=== PATIENT | female | born 1985 | race Two or more races ===

== ENCOUNTER 2017-06-03 20:53 | Outpatient (CLI) | payer MEDICAID ==
[~2017-06-03] VITALS: Ht 152.4 cm; Wt 86.6 kg
[2017-06-03 22:31] VITALS: BP 112/57
== END 2017-06-03 22:55 | disposition home or self-care (01) ==
LOC: LDOP 20:53
PROVIDERS: ATTEND Obstetrics & Gynecology Maternal & Fetal Medicine
DX: O32.2XX0 Maternal care for transverse and oblique lie, not applicable or unspecified (principal); O46.93 Antepartum hemorrhage, unspecified, third trimester; Z3A.30 30 weeks gestation of pregnancy
CPT/HCPCS: 59025; 76815; 81001; 87086; 87147; 99201; G0463

== ENCOUNTER 2017-06-09 08:06 | Inpatient (IN) | payer OTHER, MEDICAID ==
[~2017-06-09] VITALS: Ht 152.4 cm; Wt 86.4 kg
[2017-06-09 08:20] VITALS: BP 115/66
[2017-06-09] MEDS ORDERED: MAGNESIUM SULFATE PMX 4GM/100M 100 ML IVPB ONE (09:00)
[2017-06-09 09:05] LABS: HEMOGLOBIN 12.5 g/dL (11.7-16.4); WHITE BLOOD COUNT 10.6 x10^3/uL (3.4-10)
[2017-06-09] MEDS ORDERED: BETAMETHASONE 6 MG/ML, 5ML IM ONE (09:06)
[2017-06-09] MEDS ORDERED: MAGNESIUM SULF. PMX 20GM/500ML 500 ML IV ONE ×2 (09:07→17:41)
[2017-06-09] MEDS: LACTATED RINGERS 1,000 ML IV PRN ×2 (09:54→20:59)
[2017-06-09] MEDS: BETAMETHASONE 6 MG/ML, 5ML IM SCH (09:54)
[2017-06-09] MEDS: MAGNESIUM SULF. PMX 20GM/500ML 500 ML IV SCH ×2 (09:57→17:47)
[2017-06-09] MEDS: AMPICILLIN 2 GM in SODIUM CHLORIDE 0.9% 100 ML IV SCH ×3 (10:14→21:12)
[2017-06-09 11:25] LABS: ASPARTATE AMINO TRANSFERASE 16 U/L (15-37); BLOOD UREA NITROGEN 7 mg/dL (7-18)
[2017-06-09] MEDS ORDERED: INSULIN ASPART 100 UNITS/ML, PEN SQ-INSULIN ONE ×2 (13:00→18:00)
[2017-06-09] MEDS: INSULIN ASPART 100 UNITS/ML, PEN SQ-INSULIN SCH ×2 (16:25→21:39)
[2017-06-09] MEDS: INSULIN DETEMIR 100 UNITS/ML, PEN SQ-INSULIN SCH (21:00)
[2017-06-09] MEDS ORDERED: INSULIN DETEMIR 100 UNITS/ML, PEN SQ-INSULIN SCH (21:30)
[2017-06-10] MEDS ORDERED: MIDAZOLAM 1 MG/ML, 2ML ONE (02:44)
[2017-06-10] MEDS ORDERED: FENTANYL PF 100 MCG/2ML ONE (02:44)
[2017-06-10] MEDS: AMPICILLIN 2 GM in SODIUM CHLORIDE 0.9% 100 ML IV SCH ×4 (03:19→21:21)
[2017-06-10] MEDS ORDERED: MAGNESIUM SULF. PMX 20GM/500ML 500 ML IV ONE ×3 (03:22→23:38)
[2017-06-10] MEDS: MAGNESIUM SULF. PMX 20GM/500ML 500 ML IV SCH ×3 (03:24→23:42)
[2017-06-10] MEDS: INSULIN ASPART 100 UNITS/ML, PEN SQ-INSULIN SCH ×3 (07:00→09:22)
[2017-06-10] MEDS ORDERED: INSULIN ASPART 100 UNITS/ML, PEN SQ-INSULIN SCH ×2 (07:30→11:30)
[2017-06-10] MEDS: INSULIN DETEMIR 100 UNITS/ML, PEN SQ-INSULIN SCH ×2 (09:21→21:00)
[2017-06-10] MEDS ORDERED: INSULIN ASPART 70/30 100U/ML, PEN SQ-INSULIN ONE ×5 (09:30→15:30)
[2017-06-10] MEDS: BETAMETHASONE 6 MG/ML, 5ML IM SCH (10:37)
[2017-06-10] MEDS: LACTATED RINGERS 1,000 ML IV PRN (11:58)
[2017-06-10] MEDS ORDERED: INSULIN ASPART 100 UNITS/ML, PEN SQ-INSULIN ONE ×2 (18:00→20:00)
[2017-06-10] MEDS ORDERED: INSULIN DETEMIR 100 UNITS/ML, PEN SQ-INSULIN ONE ×3 (20:00→21:30)
[2017-06-11 01:07] VITALS: BP 99/54
[2017-06-11] MEDS: LACTATED RINGERS 1,000 ML IV PRN (02:05)
[2017-06-11] MEDS: AMPICILLIN 2 GM in SODIUM CHLORIDE 0.9% 100 ML IV SCH ×3 (03:00→15:00)
[2017-06-11] MEDS ORDERED: INSULIN ASPART 100 UNITS/ML, PEN SQ-INSULIN SCH (07:30)
[2017-06-11] MEDS: INSULIN DETEMIR 100 UNITS/ML, PEN SQ-INSULIN SCH (07:40)
[2017-06-11] MEDS ORDERED: INSULIN DETEMIR 100 UNITS/ML, PEN SQ-INSULIN ONE ×2 (08:00→21:00)
[2017-06-11] MEDS: MAGNESIUM SULF. PMX 20GM/500ML 500 ML IV SCH (10:40)
[2017-06-11] MEDS ORDERED: ACETAMINOPHEN 325 MG TABLET ONE ×2 (11:39→22:33)
[2017-06-11] MEDS: ACETAMINOPHEN 325 MG TABLET PO PRN ×2 (11:42→22:35)
[2017-06-11] MEDS ORDERED: INSULIN ASPART 100 UNITS/ML, PEN SQ-INSULIN ONE ×4 (12:30→18:30)
[2017-06-11 20:00] VITALS: BP 96/51
[2017-06-11] MEDS ORDERED: TERBUTALINE 1 MG/ML, 1ML ONE (23:07)
[2017-06-11] MEDS ORDERED: TERBUTALINE 1 MG/ML, 1ML SQ ONE (23:30)
[2017-06-12] MEDS ORDERED: OXYcodone/APAP 5/325MG TABLET ONE (00:41)
[2017-06-12] MEDS ORDERED: OXYcodone/APAP 5/325MG TABLET PO PRN ×2 (01:00→05:30)
[2017-06-12] MEDS ORDERED: OXYTOCIN 30U/ 0.9% NaCL 500ML 500 ML ONE ×3 (01:26→05:13)
[2017-06-12] MEDS ORDERED: NEWBORN KIT ONE (01:26)
[2017-06-12] MEDS ORDERED: METOCLOPRAMIDE 5 MG/ML, 2ML ONE (01:26)
[2017-06-12] MEDS ORDERED: SODIUM CITRATE/CITRIC ACID 30 ML UDC ONE ×2 (01:26→01:27)
[2017-06-12] MEDS ORDERED: D5%-LACTATED RINGERS 1,000 ML IV SCH (01:44)
[2017-06-12] MEDS ORDERED: LACTATED RINGERS 1,000 ML IV SCH (01:44)
[2017-06-12] MEDS ORDERED: AMPICILLIN 2 GM in SODIUM CHLORIDE 0.9% 50 ML IVPB STA (01:44)
[2017-06-12] MEDS ORDERED: OXYTOCIN 30U/ 0.9% NaCL 500ML 500 ML IV ONE (01:44)
[2017-06-12] MEDS ORDERED: MISOPROSTOL 200 MCG TABLET ONE ×2 (01:52→04:54)
[2017-06-12] MEDS ORDERED: ONDANSETRON 2MG/ML, 2ML IVPush PRN (02:00)
[2017-06-12] MEDS ORDERED: CALCIUM CARBONATE 500 MG TAB.CHEW PO PRN (02:00)
[2017-06-12] MEDS ORDERED: METOCLOPRAMIDE 5 MG/ML, 2ML IVPush PRN (02:00)
[2017-06-12] MEDS ORDERED: SODIUM CITRATE/CITRIC ACID 30 ML UDC PO PRN (02:00)
[2017-06-12] MEDS ORDERED: FENTANYL PF 100 MCG/2ML IV PRN (02:00)
[2017-06-12] MEDS ORDERED: FENTANYL PF 100 MCG/2ML ONE ×3 (02:06→03:51)
[2017-06-12 02:07] LABS: HEMATOCRIT 33.3 % (34.6-47.8); WHITE BLOOD COUNT 14.7 x10^3/uL (3.4-10)
[2017-06-12] MEDS: FENTANYL PF 100 MCG/2ML IVPush PRN ×2 (02:09→02:56)
[2017-06-12] MEDS ORDERED: LIDOCAINE 1%, 20ML ONE (04:54)
[2017-06-12] MEDS ORDERED: ONDANSETRON 2MG/ML, 2ML IV PRN (05:30)
[2017-06-12] MEDS ORDERED: ACETAMINOPHEN 325 MG TABLET PO PRN (05:30)
[2017-06-12] MEDS ORDERED: MISOPROSTOL 200 MCG TABLET PO PRN (05:30)
[2017-06-12] MEDS: OXYTOCIN 30U/ 0.9% NaCL 500ML 500 ML IV SCH ×2 (05:51→15:12)
[2017-06-12] MEDS ORDERED: AMPICILLIN 1 GM in SODIUM CHLORIDE 0.9% 50 ML IV SCH (06:00)
[2017-06-12] MEDS ORDERED: PRENATAL VIT/IRON/FA 1 EACH TABLET ONE (07:20)
[2017-06-12 07:21] VITALS: BP 101/93
[2017-06-12] MEDS: DOCUSATE 100 MG CAPSULE PO PRN (07:25)
[2017-06-12] MEDS: PRENATAL VIT/IRON/FA 1 EACH TABLET PO SCH (07:29)
[2017-06-12] MEDS ORDERED: INSULIN ASPART 100 UNITS/ML, PEN SQ-INSULIN SCH (07:30)
[2017-06-12 12:15] VITALS: BP 111/78
[2017-06-12 13:10] LABS: HEMATOCRIT 36.7 % (34.6-47.8); HEMOGLOBIN 12.1 g/dL (11.7-16.4); WHITE BLOOD COUNT 15.5 x10^3/uL (3.4-10)
[2017-06-12 16:26] VITALS: BP 120/78
[2017-06-12] MEDS ORDERED: INSULIN ASPART 100 UNITS/ML, PEN SQ-INSULIN ONE (16:30)
[2017-06-12 19:47] VITALS: BP 106/60
[2017-06-12] MEDS ORDERED: INSULIN DETEMIR 100 UNITS/ML, PEN SQ-INSULIN ONE (21:00)
[2017-06-13 00:20] VITALS: BP 111/73
[2017-06-13] MEDS: IBUPROFEN 600 MG TABLET PO PRN ×2 (00:39→19:28)
[2017-06-13] MEDS: OXYTOCIN 30U/ 0.9% NaCL 500ML 500 ML IV SCH ×3 (01:12→21:12)
[2017-06-13 04:20] VITALS: BP 113/66
[2017-06-13] MEDS ORDERED: OXYC-302 PO (05:44)
[2017-06-13] MEDS ORDERED: IBUP-1222 PO (05:44)
[2017-06-13] MEDS ORDERED: INSULIN ASPART 100 UNITS/ML, PEN SQ-INSULIN SCH (07:30)
[2017-06-13] MEDS ORDERED: INSULIN DETEMIR 100 UNITS/ML, PEN SQ-INSULIN SCH (07:30)
[2017-06-13 08:05] VITALS: BP 116/68
[2017-06-13 09:15] VITALS: BP 112/67
[2017-06-13] MEDS: PRENATAL VIT/IRON/FA 1 EACH TABLET PO SCH (09:25)
[2017-06-13] MEDS: DOCUSATE 100 MG CAPSULE PO PRN (09:25)
[2017-06-13] MEDS ORDERED: DIPH,PERTUSS(ACELL),TET VAC/PF NC IM-VACC ONE ×2 (16:48→18:00)
[2017-06-13] MEDS ORDERED: MEASLES,MUMPS&RUBELLA VACC/PF 0.5 ML SQ-VACC ONE ×2 (16:48→17:30)
[2017-06-13] MEDS ORDERED: INSULIN ASPART 100 UNITS/ML, PEN SQ-INSULIN ONE (18:30)
[2017-06-13 19:20] VITALS: BP 124/81
[2017-06-13] MEDS ORDERED: INSULIN DETEMIR 100 UNITS/ML, PEN SQ-INSULIN ONE (21:00)
[2017-06-14] MEDS ORDERED: INSULIN ASPART 100 UNITS/ML, PEN SQ-INSULIN ONE (07:15)
[2017-06-14] MEDS ORDERED: INSULIN DETEMIR 100 UNITS/ML, PEN SQ-INSULIN ONE (07:15)
[2017-06-14 08:00] VITALS: BP 111/62
[2017-06-14] MEDS ORDERED: INSULIN ASPART 100 UNITS/ML, PEN SQ-INSULIN SCH (08:00)
== END 2017-06-14 10:16 | disposition home or self-care (01) | DRG 775 ==
LOC: LDOP 08:06 → LDIP 08:48 → 2NW 06-12 06:46
PROVIDERS: ADMIT Obstetrics & Gynecology Maternal & Fetal Medicine; ATTEND Obstetrics & Gynecology Maternal & Fetal Medicine
PROC: 0UQMXZZ Repair Vulva, External Approach (ICD-10-PCS; principal; 2017-06-09)
PROC: 10E0XZZ Delivery of Products of Conception, External Approach (ICD-10-PCS; 2017-06-09)
DX: O60.14X0 Preterm labor third trimester with preterm delivery third trimester, not applicable or unspecified (principal); O24.429 Gestational diabetes mellitus in childbirth, unspecified control; O71.82 Other specified trauma to perineum and vulva; Z37.0 Single live birth; Z3A.31 31 weeks gestation of pregnancy; Z79.4 Long term (current) use of insulin; Z90.81 Acquired absence of spleen
CPT/HCPCS: 36415; 76805; 80053; 81001; 82962; 83036; 83735; 85025; 85384; 86850; 86900; 87081; 87086; 90715; J0290; J0702; J1815; J2250; J3010; J2590; J3105; J3475; J7120

== ENCOUNTER 2019-08-31 22:41 | Emergency (ER) | payer MEDICAID, OTHER ==
[~2019-08-31] VITALS: Ht 152.4 cm; Wt 83.1 kg
[~2019-08-31 22:41] MED LIST: IBUP-1222 PO; OXYC-302 PO
--- NOTE | 2019-08-31 22:54 | NUR ---
PT REPORTS INCREASED BLOOD SUGAR W/ HX OF DIABETES. BLOOD SUGAR 515 AT TRIAGE. PT HAS NOT BEEN TAKING INSULIN FOR "LAST FEW DAYS". PT REPORTS NAUSEA, RUQ PAIN AND "SHAKINESS". ERP IN ROOM TO EVALUATE PT. PT CONNECTED TO MONITORING, CALL LIGHT WITHIN REACH, ALL SAFETY MEASURES IN PLACE.
[2019-08-31] MEDS ORDERED: SODIUM CHLORIDE 0.9% 1,000ML IVBOLUS ONE (23:00)
[2019-08-31 23:10] LABS: BASOPHILS # (AUTO) 0.03 x10^3/uL (0-0.1); BASOPHILS % (AUTO) 1 % (0-1); EOSINOPHILS # (AUTO) 0.15 x10^3/uL (0-0.4); EOSINOPHILS % (AUTO) 2 % (1-7); LYMPHOCYTES # (AUTO) 3.52 x10^3/uL (1-3.4); LYMPHOCYTES % (AUTO) 49 % (22-44); MD NO; MEAN CORPUSCULAR HEMOGLOBIN 31.2 pg (27.0-34.8); MEAN CORPUSCULAR HGB CONC 33.7 g/dL (32.4-35.8); MEAN CORPUSCULAR VOLUME 92.7 fL (80-100); MEAN PLATELET VOLUME 7.8 fL (7.4-10.4); MONOCYTES % (AUTO) 7 % (2-9); NEUTROPHILS # (AUTO) 3.06 x10^3/uL (1.8-6.8); NEUTROPHILS % (AUTO) 42 % (42-75); PLATELET COUNT 313 x10^3/uL (130-400); RED BLOOD COUNT 4.99 x10^6/uL (3.82-5.3); RED CELL DISTRIBUTION WIDTH 12.4 % (9.6-15.2)
[2019-08-31 23:23] LABS: ALANINE AMINOTRANSFERASE 22 U/L (12-78); ALBUMIN 3.5 g/dL (3.4-5.0); ANION GAP 7 mmol/L (5-15); CALCIUM 8.7 mg/dL (8.5-10.1); CHLORIDE 99 mmol/L (98-107)
[2019-08-31 23:28] LABS: ALKALINE PHOSPHATASE 136 U/L (45-117); BILIRUBIN,TOTAL 0.3 mg/dL (0.2-1.0); TOTAL PROTEIN 7.3 g/dL (6.4-8.2)
[2019-08-31] MEDS ORDERED: INSULIN REGULAR 100 UNITS/ML, 3ML VIAL IVPush ONE (23:30)
[2019-08-31] MEDS ORDERED: INSULIN SINGLE DOSE, ER ONE (23:35)
--- NOTE | 2019-09-01 00:23 | NUR ---
PT BLOOD SUGAR 243MG/DL AT THIS TIME.
[2019-09-01 00:29] VITALS: BP 119/83
== END 2019-09-01 00:33 | disposition home or self-care (01) ==
LOC: ED 22:54
DX: E11.65 Type 2 diabetes mellitus with hyperglycemia (principal); R11.0 Nausea
CPT/HCPCS: 80053; 82962; 83690; 84703; 85025; 96361; 96374; 99283; J1815; J7030